=== PATIENT | male | born 1970 | race Caucasian/White ===

== ENCOUNTER 2023-04-20 16:57 | Emergency (ER) | payer OTHER ==
[~2023-04-20] VITALS: Ht 170.2 cm; Wt 74.8 kg
[2023-04-20 18:00] LABS: BASOPHILS ABSOLUTE AUTO 0.05 K/mm3 (0.00-0.23); BASOPHILS PERCENT AUTO 1 % (0-2); EOSINOPHILS ABSOLUTE AUTO 0.06 K/mm3 (0.00-0.68); EOSINOPHILS PERCENT AUTO 1 % (0-6); Hematocrit 45.8 % (37.0-53.0); Hemoglobin 15.4 g/dL (13.5-17.5); IMMATURE GRAN ABSOLUTE AUTO 0.01 K/mm3 (0.00-0.10); IMMATURE GRAN PERCENT AUTO 0 % (0-1); LYMPHOCYTES ABSOLUTE AUTO 1.55 K/mm3 (0.84-5.20); LYMPHOCYTES PERCENT AUTO 21 % (21-46); MONOCYTES ABSOLUTE AUTO 0.43 K/mm3 (0.16-1.47); MONOCYTES PERCENT AUTO 6 % (4-13); Mean Corpuscular HGB 28.8 pg (26.0-34.0); Mean Corpuscular HGB Conc 33.6 g/dL (31.5-36.5); Mean Corpuscular Volume 86 fL (80-100); Mean Platelet Volume 10.2 fL (9.1-12.4); NEUTROPHILS PERCENT AUTO 72 % (41-73); Platelet Count 268 K/mm3 (150-400); RDW Coefficient Variation 12.6 % (11.7-14.2); RDW Standard Deviation 39.6 fL (35.1-46.3); Red Blood Cell Count 5.34 M/mm3 (4.30-5.90)
[2023-04-20 18:15] LABS: Albumin, Blood 4.5 g/dL (3.4-5.0); Albumin/Globulin Ratio 1.2 (0.8-1.8); Bilirubin, Total 0.4 mg/dL (0.1-1.0); Bun/Creatinine Ratio 17.1 (12.0-20.0); Calcium, Blood 9.9 mg/dL (8.5-10.1); Creatinine, Blood 1.17 mg/dL (0.60-1.20); Globulin, Blood 3.8 g/dL (2.2-4.0); Potassium, Blood 4.3 mmol/L (3.5-5.5); Total Protein, Blood 8.3 g/dL (6.4-8.2)
[2023-04-20 20:25] LABS: Source, Urine Clean Catch
[2023-04-20] MEDS ORDERED: Percocet 5-3251 EACH PO (20:38)
[2023-04-20] MEDS ORDERED: TAMS.4ER PO (20:38)
[2023-04-20 20:44] LABS: Appearance, Urine Hazy (Clear); Bilirubin, Urine Neg (Neg); Blood, Urine 5+ (Neg); Color, Urine Yellow (P-Yellow); Glucose Qualitative, Urine Neg (Neg); Ketones, Urine 1+ (Neg); Leukocyte Esterase, Urine Neg (Neg); Nitrite, Urine Neg (Neg); Protein, Urine 2+ (Neg); Specific Gravity, Urine 1.015 (1.003-1.022); Urobilinogen, Urine NORM (Normal)
[2023-04-20 20:54] VITALS: BP 152/98
[2023-04-20 20:57] LABS: Bacteria Few /hpf; Red Blood Cells, Urine TNTC /hpf (0-2); Squamous Epithelial Cells Few /hpf (Few); White Blood Cells, Urine 0-2 /hpf (0-5)
== END 2023-04-20 20:57 | disposition home or self-care (01) ==
LOC: ER 16:57
PROVIDERS: Emergency Medicine
DX: N13.2 Hydronephrosis with renal and ureteral calculous obstruction (principal)
CPT/HCPCS: 74177; 80053; 81001; 85025; 96374; 96376; 99284-25; A9270; J1885; Q9967

== ENCOUNTER → 2025-04-08 | Outpatient (CLI) | payer OTHER ==
[~2025-04-08] MED LIST: Percocet 5-3251 EACH PO; TAMS.4ER PO
[2025-04-17 13:16] LABS: CALCULI MASS 43 mg
== END ==
LOC: LAB SHORT 13:08 → LAB 13:08
PROVIDERS: Student in an Organized Health Care Education/Training Program
DX: Z87.442 Personal history of urinary calculi (principal)
CPT/HCPCS: 82365